=== PATIENT | female | born 1990 | race Two or more races ===

== ENCOUNTER 2018-02-05 18:09 | Observation (INO) | payer SELFPAY | END 2018-02-05 19:49 | disposition home or self-care (01) | LOC: 3 SO LND 18:09 | DX: O62.9 Abnormality of forces of labor, unspecified (principal); Z3A.35 35 weeks gestation of pregnancy | CPT/HCPCS: 59025; G0378; G0379 ==

== ENCOUNTER 2018-02-27 12:00 | Inpatient (IN) | payer SELFPAY ==
[~2018-02-27 12:00] MED LIST: ceFAZolin 2GM PREMIX 2 GM/50 ML BAG IV
[2018-02-27] MEDS ORDERED: 0.9 % SODIUM CHLORIDE 10 ML DISP.SYRIN. IV ×2 (12:30→17:30)
[2018-02-27] MEDS ORDERED: OXYTOCIN 30 UNIT/500 ML PREMIX 500 ML IV ×3 (12:30→17:30)
[2018-02-27 13:22] LABS: HEMATOCRIT 39.2 % (36.0-47.0); HEMOGLOBIN 13.3 g/dL (12.0-15.5); MEAN CORPUSCULAR HEMOGLOBIN 31 pg (25-35); MEAN CORPUSCULAR HGB CONC 34 g/dL (31-37); MEAN CORPUSCULAR VOLUME 91 fL (79-100); PLATELET COUNT 199 x10^3/uL (140-400); RED BLOOD COUNT 4.31 x10^6/uL (3.50-5.40); RED CELL DISTRIBUTION WIDTH 13.9 % (11.5-14.5); WHITE BLOOD COUNT 13.3 x10^3/uL (4.0-11.0)
[2018-02-27] MEDS: IV RINGERS,LACTATED 1000ML 1,000 ML IV ×2 (13:24→15:44)
[2018-02-27 14:08] LABS: BILIRUBIN,URINE NEGATIVE (NEG); CLARITY,URINE CLEAR; COLOR,URINE YELLOW; GLUCOSE,URINE NEGATIVE (NEG); NITRITE,URINE NEGATIVE (NEG); PH,URINE 6.5; PROTEIN,URINE NEGATIVE (NEG-TRACE); UROBILINOGEN,URINE 0.2 mg/dL (0.2 mg/dL)
[2018-02-27 14:29] LABS: RBC,URINE 0 /HPF (0-2); SQUAMOUS EPITHELIAL CELL,UR MOD /LPF
[2018-02-27 14:30] LABS: BACTERIA,URINE MODERATE /HPF (0-FEW)
[2018-02-27] MEDS ORDERED: MORPHINE PF 5 MG/10 ML VIAL. (15:26)
[2018-02-27] MEDS ORDERED: OXYTOCIN 10 UNIT/ML VIAL. ×2 (15:26→17:07)
[2018-02-27] MEDS: CITRIC ACID/SODIUM CITRATE 30 ML SOLUTION. PO (16:14)
[2018-02-27] MEDS ORDERED: ONDANSETRON PF 4 MG/2 ML VIAL. (17:07)
[2018-02-27] MEDS ORDERED: SIMETHICONE 80 MG TAB.CHEW PO (17:30)
[2018-02-27] MEDS ORDERED: MMR per PROTOCOL. MC (17:30)
[2018-02-27] MEDS ORDERED: ONDANSETRON PF 4 MG/2 ML VIAL. IV (17:30)
[2018-02-27] MEDS ORDERED: MAG HYDROX/ALUMINUM HYD/SIMETH 30 ML ORAL.SUSP PO (17:30)
[2018-02-27] MEDS ORDERED: ZOLPIDEM 5 MG TABLET. PO (17:30)
[2018-02-27] MEDS ORDERED: diphenhydrAMINE ORAL ELIXIR 12.5 MG/5 ML ML PO (17:30)
[2018-02-27] MEDS: KETOROLAC 30 MG/ML INJ. IV (19:07)
[2018-02-27] MEDS: ceFAZolin SODIUM IV Push 1 GM VIAL. IVP (21:16)
[2018-02-27] MEDS ORDERED: ceFAZolin SODIUM 1 GM in IV DEXTROSE 5% 50 ML IV (22:00)
[2018-02-28] MEDS: IV RINGERS,LACTATED 1000ML 1,000 ML IV (00:39)
[2018-02-28 05:13] LABS: ADD MAN DIFF? NO
[2018-02-28 05:19] LABS: BASO % 0 % (0-3); EOS # 0.1 x10^3/uL (0.0-0.7); EOS % 1 % (0-3); HEMATOCRIT 35.3 % (36.0-47.0); LYMPH # 2.8 x10^3/uL (1.0-4.8); LYMPH % 22 % (24-48); MEAN CORPUSCULAR HEMOGLOBIN 31 pg (25-35); MEAN CORPUSCULAR HGB CONC 34 g/dL (31-37); MEAN CORPUSCULAR VOLUME 91 fL (79-100); MONO # 0.9 x10^3/uL (0.0-1.1); MONO % 7 % (0-9); NEUT # 9.2 x10^3uL (1.8-7.7); NEUT % 70 % (31-73); PLATELET COUNT 168 x10^3/uL (140-400); RED BLOOD COUNT 3.87 x10^6/uL (3.50-5.40); RED CELL DISTRIBUTION WIDTH 13.9 % (11.5-14.5)
[2018-02-28] MEDS: ceFAZolin SODIUM IV Push 1 GM VIAL. IVP (06:09)
[2018-02-28] MEDS: KETOROLAC 30 MG/ML INJ. IV (06:09)
[2018-02-28] MEDS: FERROUS SULFATE 325 MG TABLET. PO (10:12)
[2018-02-28] MEDS: DOCUSATE SODIUM 100 MG CAPSULE. PO (10:12)
[2018-02-28] MEDS: IBUPROFEN 800 MG TABLET. PO ×2 (13:46→23:58)
[2018-02-28] MEDS: oxyCODONE/APAP 5/325 1 TAB TABLET PO ×2 (13:46→18:34)
[2018-02-28] MEDS: DIPHTH,PERTUSS(ACELL),TET TOX 0.5 ML DISP.SYRIN. VAX IM (21:18)
[2018-03-01] MEDS: oxyCODONE/APAP 5/325 1 TAB TABLET PO ×3 (02:06→22:20)
[2018-03-01] MEDS: DOCUSATE SODIUM 100 MG CAPSULE. PO ×2 (07:35→22:20)
[2018-03-01] MEDS: IBUPROFEN 800 MG TABLET. PO ×2 (07:35→22:19)
[2018-03-01] MEDS: MAGNESIUM HYDROXIDE 2,400 MG/30 ML ORAL.SUSP. PO (14:44)
[2018-03-02] MEDS: IBUPROFEN 800 MG TABLET. PO ×2 (08:46→18:05)
[2018-03-02] MEDS: DOCUSATE SODIUM 100 MG CAPSULE. PO (08:46)
[2018-03-03] MEDS: IBUPROFEN 800 MG TABLET. PO ×2 (02:02→12:35)
[2018-03-03] MEDS: DOCUSATE SODIUM 100 MG CAPSULE. PO (09:12)
== END 2018-03-03 17:00 | disposition home or self-care (01) | DRG 765 ==
LOC: 3 SO LND 12:00 → 3 NORTH 20:10
PROC: 10D00Z1 Extraction of Products of Conception, Low, Open Approach (ICD-10-PCS; principal; 2018-02-27)
DX: O34.211 Maternal care for low transverse scar from previous cesarean delivery (principal); O36.5930 Maternal care for other known or suspected poor fetal growth, third trimester, not applicable or unspecified; Z37.0 Single live birth; Z3A.00 Weeks of gestation of pregnancy not specified
CPT/HCPCS: 36415; 81001; 85025; 85027; 86592; 86850; 86900; 86901; 87086; 90715; J0690; J1885; J2270; J2405; J2590; J7120